=== PATIENT | female | born 1960 | race Caucasian/White ===

== ENCOUNTER 2021-03-22 07:53 | Day surgery (SDC) | payer OTHER ==
[2021-03-20 15:07] VITALS: BMI 27.0
[2021-03-22] MEDS ORDERED: PROPOFOL 20 ML ONE ×2 (08:16)
[2021-03-22 08:28] VITALS: TEMP 97.7
[2021-03-22 09:37] VITALS: BP 95/66; PULSE 72
== END 2021-03-22 10:00 | disposition home or self-care (01) ==
LOC: FASU-ENDO 07:53
PROVIDERS: ATTEND Internal Medicine Gastroenterology
PROC: 0DB68ZX Excision of Stomach, Via Natural or Artificial Opening Endoscopic, Diagnostic (ICD-10-PCS; 2021-03-22)
PROC: 0DB58ZX Excision of Esophagus, Via Natural or Artificial Opening Endoscopic, Diagnostic (ICD-10-PCS; 2021-03-22)
PROC: 0DB98ZX Excision of Duodenum, Via Natural or Artificial Opening Endoscopic, Diagnostic (ICD-10-PCS; principal; 2021-03-22 08:56)
DX: K29.50 Unspecified chronic gastritis without bleeding (principal); K21.00 Gastro-esophageal reflux disease with esophagitis, without bleeding; K31.9 Disease of stomach and duodenum, unspecified; R12 Heartburn
CPT/HCPCS: 88305-TC; 88342-TC